=== PATIENT | female | born 1960 | race Caucasian/White ===

== ENCOUNTER 2017-07-25 10:18 | Emergency (ER) | payer OTHER ==
--- NOTE | 2017-07-25 10:39 | EDPHY ---
H & P Time Seen by Provider: 07/25/17 10:29 HPI/ROS: Chief complaint. Sweats, body aches HPI. Achy, sweaty, abdominal pain Patient is a 57-year-old female presents with 2 day history of achiness and sweatiness. No URI symptoms or cough or sore throat. No shortness of breath or chest discomfort. She has sharp left-sided abdominal pain. No vomiting or diarrhea. Unsure whether she has had fever. She has urinary frequency with decreased urination. No sick contacts or recent travel. No flu shot. No abdominal history or previous abdominal surgeries ROS Constitutional. Possible fever Eyes. no problems with vision ENT. no sore throat, no nasal drainage Cardiovascular. no chest pain Respiratory. no shortness of breath, no cough Abdominal. Left-sided abdominal pain . Urinary frequency MS. achy Skin. Sweaty Lymph. no swollen glands Neuro. Headache Past Medical/Surgical History: Healthy Social History: Single, daily smoker, no alcohol Smoking Status: Current every day smoker Physical Exam: General Appearance: Alert well-developed female moderate distress vital signs significant for heart rate 112 Eyes: Pupils equal and round no pallor or injection. ENT, Mouth: Mucous membranes are moist. Respiratory: There are no retractions, lungs are clear to auscultation. Cardiovascular: Regular rate and rhythm. Gastrointestinal: Abdomen is soft with left-sided abdominal tenderness. No tenderness at McBurney's point. No masses. Normal bowel sounds Neurological: Awake and alert, sensory and motor exams grossly normal. Skin: Warm and dry, no rashes. Musculoskeletal: Neck is supple nontender. Extremities symmetrical, full range of motion. Psychiatric: Patient is oriented X 3, there is no agitation. Constitutional: Initial Vital Signs Temperature (C) 36.5 C 07/25/17 10:24 Heart Rate 112 H 07/25/17 10:24 Respiratory Rate 20 07/25/17 10:24 Blood Pressure 123/92 H 07/25/17 10:24 O2 Sat (%) 97 07/25/17 10:24 O2 Delivery Mode Room Air Allergies/Adverse Reactions: No Known Allergies Allergy (Unverified 07/25/17 10:23) Home Medications: Medication Instructions Recorded Cephalexin [Keflex (*)] 500 mg PO TID #21 cap 07/25/17 Hydrocodone/APAP 5/325 [[place] 1 each PO Q4-6PRN PRN #10 tab 07/25/17 5/325 (*)] Ondansetron Odt [Zofran Odt] 4 mg PO Q4PRN PRN #4 tab 07/25/17 Medical Decision Making - Diagnostics Imaging Results: Imaging Impressions Chest X-Ray 07/25/17 11:00 Impression: Negative chest.. Abdomen CT 07/25/17 11:01 Impression: 1. Abnormal right kidney, suspicious of pyelonephritis. 2. Left adrenal mass, possible adenoma. I telephoned results to Dr. Amol Fabian at [address] abdomen reviewed by me and discussed with Dr. Farias shows likely pyelonephritis. Right kidney is swollen and edematous. No evidence for kidney stone or hydronephrosis. One-view chest x-ray interpreted by me is normal Procedures: IV normal saline. 1 L of saline. Toradol for discomfort and fentanyl for discomfort. Zofran for nausea ED Course/Re-evaluation: IV Rocephin. Urine is infected and certainly consistent with pyelonephritis. The patient and I talked about treatment plan including offer of admission. We discussed criteria for return as the patient does not wish to be treated as an inpatient. She expresses understanding and agreement 2:15 p.m. re-evaluation the patient is stable and feeling better. No vomiting. Differential Diagnosis: Left-sided abdominal pain but imaging studies show right pyelonephritis and by exam right pyelonephritis. Urinalysis is positive. I considered diverticulitis as well as kidney stone. - Data Points Laboratory Results: Laboratory Results 07/25/17 10:35 07/25/17 10:35 07/25/17 07/25/17 07/25/17 12:20 10:35 10:35 WBC 14.44 10^3/uL H 10^3/uL (3.80-9.50) RBC 5.63 10^6/uL H 10^6/uL (4.18-5.33) Hgb 18.9 g/dL H g/dL (12.6-16.3) Hct 52.0 % H % (38.0-47.0) MCV 92.4 fL fL (81.5-99.8) MCH 33.6 pg pg (27.9-34.1) MCHC 36.3 g/dL g/dL (32.4-36.7) RDW 11.9 % % (11.5-15.2) Plt Count 176 10^3/uL 10^3/uL (150-400) MPV 10.4 fL fL (8.7-11.7) Neut % (Auto) 79.2 % H % (39.3-74.2) Lymph % (Auto) 11.7 % L % (15.0-45.0) [place] % (Auto) 8.2 % % (4.5-13.0) Eos % (Auto) 0.1 % L % (0.6-7.6) Baso % (Auto) 0.4 % % (0.3-1.7) Nucleat RBC Rel Count 0.0 % % (0.0-0.2) Absolute Neuts (auto) 11.42 10^3/uL H 10^3/uL (1.70-6.50) Absolute Lymphs (auto) 1.69 10^3/uL 10^3/uL (1.00-3.00) Absolute Monos (auto) 1.19 10^3/uL H 10^3/uL (0.30-0.80) Absolute Eos (auto) 0.02 10^3/uL L 10^3/uL (0.03-0.40) Absolute Basos (auto) 0.06 10^3/uL 10^3/uL (0.02-0.10) Absolute Nucleated RBC 0.00 10^3/uL 10^3/uL (0-0.01) Immature Gran % 0.4 % % (0.0-1.1) Immature Gran # 0.06 10^3/uL 10^3/uL (0.00-0.10) Sodium 130 mEq/L L mEq/L (134-144) Potassium 3.0 mEq/L L mEq/L (3.5-5.2) Chloride 88 mEq/L L mEq/L (97-110) Carbon Dioxide 26 mEq/l mEq/l (22-31) Anion Gap 16 mEq/L mEq/L (8-16) BUN 16 mg/dL mg/dL (7-23) Creatinine 0.9 mg/dL mg/dL (0.6-1.0) Estimated GFR > 60 Glucose 143 mg/dL H mg/dL (70-100) Calcium 9.7 mg/dL mg/dL (8.5-10.4) Total Bilirubin 0.8 mg/dL mg/dL (0.1-1.4) Conjugated Bilirubin 0.5 mg/dL mg/dL (0.0-0.5) Unconjugated Bilirubin 0.3 mg/dL mg/dL (0.0-1.1) AST 31 IU/L IU/L (14-46) ALT 42 IU/L IU/L (9-52) Alkaline Phosphatase 118 IU/L IU/L (38-126) Troponin I < 0.012 ng/mL ng/mL (0.000-0.034) Total Protein 7.3 g/dL g/dL (6.3-8.2) Albumin 4.1 g/dL g/dL (3.5-5.0) Lipase 44 IU/L IU/L (23-300) Urine Color EMMANUEL Urine Appearance MODERATELY TURBID Urine pH 5.0 (5.0-7.5) Ur Specific [place] > 1.035 H (1.002-1.030) Urine Protein 2+ H (NEGATIVE) Urine Ketones TRACE H (NEGATIVE) Urine Blood 1+ H (NEGATIVE) Urine Nitrate POSITIVE H (NEGATIVE) Urine Bilirubin NEGATIVE (NEGATIVE) Urine Urobilinogen NEGATIVE EU EU (0.2-1.0) Ur Leukocyte Esterase 3+ H (NEGATIVE) Urine RBC 10-15 /hpf H /hpf (0-3) Urine WBC 50-182 /hpf H /hpf (0-3) Ur Epithelial Cells NONE SEEN /lpf /lpf (NONE-1+) Urine Bacteria 1+ /hpf H /hpf (NONE SEEN) Hyaline Casts 15-25 /lpf H /lpf (0-1) Urine Mucus TRACE /lpf /lpf (NONE-1+) Urine Glucose NEGATIVE (NEGATIVE) Microbiology Results: MICROBIOLOGY 07/25/17 10:35 Nasal, Sinus - Anaerobic Tube/Swab Respiratory Panel (PCR) - Final No Organism Detected Medications Given: Discontinued Medications Fentanyl (Sublimaze) 100 mcg IVP EDNOW ONE Stop: 07/25/17 11:01 Last Admin: 07/25/17 11:07 Dose: 100 mcg Sodium Chloride (Ns) 1,000 mls @ 0 mls/hr IV ONCE ONE; Wide Open PRN Reason: Protocol Stop: 07/25/17 11:01 Last Admin: 07/25/17 11:03 Dose: 1,000 mls Sodium Chloride (Ns) 1,000 mls @ 0 mls/hr IV ONCE ONE; Wide Open PRN Reason: Protocol Stop: 07/25/17 12:11 Last Admin: 07/25/17 12:23 Dose: 1,000 mls Ceftriaxone Sodium/Dextrose (Rocephin 1 Gm (Premix)) 50 mls @ 100 mls/hr IV EDNOW ONE PRN Reason: Protocol Stop: 07/25/17 14:13 Last Admin: 07/25/17 13:59 Dose: 50 mls Ketorolac Tromethamine (Toradol) 30 mg IVP EDNOW ONE Stop: 07/25/17 11:01 Last Admin: 07/25/17 11:07 Dose: 30 mg Ondansetron HCl (Zofran) 4 mg IVP EDNOW ONE Stop: 07/25/17 11:01 Last Admin: 07/25/17 11:10 Dose: 4 mg Departure - Departure Disposition: Home, Routine, Self-Care Clinical Impression: Pyelonephritis Condition: Good Instructions: Kidney Infection (ED) Additional Instructions: Drink plenty of fluids and stay hydrated. Cephalexin as antibiotic for kidney infection. Ibuprofen 600 mg every 6 hours for discomfort. Hydrocodone in addition as needed for discomfort. Zofran if needed for nausea. Return for worsening pain, fever, vomiting. Recheck in 2 days if not improved Referrals: NONE *PRIMARY CARE P,. [Primary Care Provider] - As per Instructions Zoila Howard MD [Medical Doctor] - 2-3 days, if not improved Stand Alone Forms: Work Excuse Prescriptions: Cephalexin [Keflex (*)] 500 mg PO TID #21 cap Hydrocodone/APAP 5/325 [[place] 5/325 (*)] 1 each PO Q4-6PRN PRN #10 tab PRN Reason: Pain, Moderate Ondansetron Odt [Zofran Odt] 4 mg PO Q4PRN PRN #4 tab PRN Reason: Nausea/Vomiting, Use 1st
[2017-07-25] MEDS ORDERED: ONDANSETRON 4 MG/2 ML VIAL IVP ONE (11:00)
[2017-07-25] MEDS ORDERED: KETOROLAC 30 MG/1 ML SDV IVP ONE (11:00)
[2017-07-25] MEDS ORDERED: NS 1,000 ML IV ONE ×2 (11:00→12:10)
[2017-07-25] MEDS ORDERED: fentaNYL 100 MCG/2 ML INJ IVP ONE (11:00)
[2017-07-25 11:09] LABS: % IMMATURE GRANULYOCYTES 0.4 % (0.0-1.1); ABSOLUTE IMMATURE GRANULOCYTES 0.06 10^3/uL (0.00-0.10); ADD DIFF? NO; ADD MORPH? NO; ADD SCAN? NO; ATYPICAL LYMPHOCYTE FLAG 0 (0-99); FRAGMENT RBC FLAG 0 (0-99); HEMOGLOBIN 18.9 g/dL (12.6-16.3); LEFT SHIFT FLG 10 (0-99); LIPEMIA HEMOLYSIS FLAG 90 (0-99); MEAN CELL HEMOGLOBIN 33.6 pg (27.9-34.1); MEAN CELL HEMOGLOBIN CONCENTR. 36.3 g/dL (32.4-36.7); MEAN CELL VOLUME 92.4 fL (81.5-99.8); MEAN PLATELET VOLUME 10.4 fL (8.7-11.7); PLATELET CLUMPS FLAG 0 (0-99); PLATELET COUNT 176 10^3/uL (150-400); RED BLOOD CELL COUNT 5.63 10^6/uL (4.18-5.33); RED CELL DISTRIBUTION WIDTH 11.9 % (11.5-15.2)
[2017-07-25 11:18] LABS: ALANINE AMINOTRANSFERASE 42 IU/L (9-52); ALBUMIN 4.1 g/dL (3.5-5.0); ALKALINE PHOSPHATASE 118 IU/L (38-126); ANION GAP 16 mEq/L (8-16); ASPARTATE AMINOTRANSFERASE 31 IU/L (14-46); BILIRUBIN,TOTAL 0.8 mg/dL (0.1-1.4); BILIRUBIN-CONJUGATED 0.5 mg/dL (0.0-0.5); BILIRUBIN-UNCONJUGATED 0.3 mg/dL (0.0-1.1); CALCIUM 9.7 mg/dL (8.5-10.4); CARBON DIOXIDE 26 mEq/l (22-31); CHLORIDE 88 mEq/L (97-110); CREATININE 0.9 mg/dL (0.6-1.0); GLOMERULAR FILTRATION RATE > 60; GLUCOSE 143 mg/dL (70-100); SODIUM 130 mEq/L (134-144); TOTAL PROTEIN 7.3 g/dL (6.3-8.2)
[2017-07-25] MEDS ORDERED: IOPAMIDOL (ISOVUE-300) 100 ML BTL ONE (11:28)
[2017-07-25 11:29] LABS: TROPONIN I < 0.012 ng/mL (0.000-0.034)
--- NOTE | 2017-07-25 11:59 | CPEKG ---
Heart Rate: 88 RR Interval: 682 P-R Interval: 200 QRSD Interval: 106 QT Interval: 408 QTC Interval: 494 P Ringling: 81 QRS Ringling: 84 T Wave Ringling: 83 EKG Severity - BORDERLINE ECG - EKG Impression: SINUS RHYTHM EKG Impression: BORDERLINE PROLONGED QT INTERVAL Electronically Signed By: Amol Fabian 25-Jul-2017 15:54:14
[2017-07-25 12:48] LABS: COLOR AMBER; LEUKOCYTE ESTERASE,URINE 3+ (NEGATIVE); NITRITE,URINE POSITIVE (NEGATIVE)
[2017-07-25 13:02] LABS: BACTERIA 1+ /hpf (NONE SEEN); HYALINE CASTS 15-25 /lpf (0-1); MUCUS TRACE /lpf (NONE-1+); WBC,URINE 50-182 /hpf (0-3)
[2017-07-25 13:19] VITALS: RESP 16; TEMP 98.8
[2017-07-25 14:28] VITALS: BP 115/70; PULSE 72; O2SAT 96
== END 2017-07-25 14:29 | disposition home or self-care (01) ==
DX: N12 Tubulo-interstitial nephritis, not specified as acute or chronic (principal); F17.200 Nicotine dependence, unspecified, uncomplicated; B96.20 Unspecified Escherichia coli [E. coli] as the cause of diseases classified elsewhere; E86.9 Volume depletion, unspecified
CPT/HCPCS: 71020; 74177; 93005; 96365; 96375; 99285; J0696; J1885; J2405; J3010; Q9967

== ENCOUNTER 2018-12-16 13:02 | Emergency (ER) | payer OTHER ==
[2018-12-16 13:07] VITALS: BP 119/91
[2018-12-16] MEDS ORDERED: OSELTAMIVIR PHOSPHATE 75 MG CAP PO ONE (13:18)
[2018-12-16] MEDS ORDERED: IBUPROFEN 600 MG TAB PO ONE (13:18)
--- NOTE | 2018-12-16 13:21 | EDPHY ---
H & P Stated Complaint: cough fever chills body aches Time Seen by Provider: 12/16/18 13:15 HPI/ROS: CHIEF COMPLAINT: Fever, body aches, sore throat dry cough HISTORY OF PRESENT ILLNESS: Patient is a 58-year-old female who comes to the emergency department complaining of flu-like symptoms for the last day and half. She has not taken her temperature at home. No GI symptoms. No difficulty urinating. No rash. No headache or neck stiffness. She states that the 1st thing she noticed was a general soreness and then developed the chills and body aches, sore throat dry cough. No difficulty breathing. No chest pain. No sick contacts. She is a smoker but is trying to quit. No history of asthma COPD. She has been staying hydrated. She did not get a flu vaccine this year. Severity: Moderate Modifying factors: None REVIEW OF SYSTEMS: Constitutional: See HPI EENTM: See HPI Respiratory: See HPI Cardiac: denies: chest pain, irregular heart rate, lightheadedness, palpitations Gastrointestinal/Abdominal: denies: abdominal pain, diarrhea, nausea, vomiting, blood streaked stools Genitourinary: denies: dysuria, frequency, hematuria, pain Musculoskeletal: denies: joint pain, muscle pain Skin: denies: lesions, rash, jaundice, bruising Neurological: denies: headache, numbness, paresthesia, tingling, dizziness, weakness Hematologic/Lymphatic: denies: blood clots, easy bleeding, easy bruising Immunologic/allergic: denies: HIV/AIDS, transplant 10 systems reviewed and negative except as noted EXAM: GENERAL: Uncomfortable but in no acute distress. HEAD: Atraumatic, normocephalic. EYES: Pupils equal round and reactive to light, extraocular movements intact, sclera anicteric, conjunctiva are normal. ENT: TMs normal, nares congested, oropharynx mild erythema without exudates. Moist mucous membranes. NECK: Normal range of motion, supple without lymphadenopathy or JVD. LUNGS: Breath sounds clear to auscultation bilaterally and equal. No wheezes rales or rhonchi. HEART: Regular rate and rhythm without murmurs, rubs or gallops. ABDOMEN: Soft, nontender, normoactive bowel sounds. No guarding, no rebound. No masses appreciated. BACK: No CVA tenderness, no spinal tenderness, step-offs or deformities EXTREMITIES: Normal range of motion, no pitting or edema. No clubbing or cyanosis. NEUROLOGICAL: Cranial nerves II through XII grossly intact. Normal speech, normal gait. 5/5 strength, normal movement in all extremities, normal sensation , normal reflexes PSYCH: Normal mood, normal affect. SKIN: Warm, dry, normal turgor, no visible rashes or lesions. Source: Patient Exam Limitations: No limitations - Personal History Current Tetanus Diphtheria and Acellular Pertussis (TDAP): Yes - Medical/Surgical History Hx Asthma: No Hx Chronic Respiratory Disease: No Hx Diabetes: No Hx Cardiac Disease: No Hx Renal Disease: No Hx Cirrhosis: No Hx Alcoholism: No Hx HIV/AIDS: No Hx Splenectomy or Spleen Trauma: No Other PMH: denies - Family History Significant Family History: No pertinent family hx - Social History Smoking Status: Current every day smoker Alcohol Use: None Constitutional: Initial Vital Signs Temperature (C) 37.3 C 12/16/18 13:06 Heart Rate 113 H 12/16/18 13:06 Respiratory Rate 20 12/16/18 13:06 Blood Pressure 119/91 H 12/16/18 13:06 O2 Sat (%) 91 L 12/16/18 13:06 O2 Delivery Mode Room Air Allergies/Adverse Reactions: No Known Allergies Allergy (Verified 12/16/18 13:05) Home Medications: Medication Instructions Recorded Oseltamivir Phosphate [Tamiflu 75 75 mg PO BID #10 cap 12/16/18 mg (*)] Promethazine HCl/Codeine 5 ml PO Q4-6PRN PRN #90 ml 12/16/18 [Prometh-Codein 6.25-10 mg/5 ml] Medical Decision Making ED Course/Re-evaluation: Patient is well-appearing. She has symptoms consistent with influenza. I offered testing but considering the ubiquity of the virus currently I feel it is likely unnecessary. She agrees. Will start on Tamiflu and antipyretics. Encouraged hydration and rest. She was slightly tachycardic at triage but this is resolved in the room. Differential Diagnosis: Partial list of the Differential diagnosis considered include but were not limited to; influenza, viral syndrome and although unlikely based on the history and physical exam, I also considered meningitis, sepsis, pneumonia. I discussed these differential diagnoses and the plan with the patient as well as the usual and expected course. The patient understands that the diagnosis is provisional and that in medicine we are not always correct and that further workup is often warranted. Usual and customary warnings were given. All of the patient's questions were answered. The patient was instructed to return to the emergency department should the symptoms at all worsen or return, otherwise to followup with the physician as we discussed. - Data Points Medications Given: Discontinued Medications Ibuprofen (Motrin) 600 mg PO EDNOW ONE Stop: 12/16/18 13:19 Last Admin: 12/16/18 13:38 Dose: 600 mg Oseltamivir Phosphate (Tamiflu) 75 mg PO EDNOW ONE Stop: 12/16/18 13:19 Last Admin: 12/16/18 13:38 Dose: 75 mg Departure - Departure Disposition: Home, Routine, Self-Care Clinical Impression: Influenza Condition: Fair Instructions: Promethazine (By mouth), Oseltamivir (By mouth), Influenza (ED) Referrals: [facility],. [Clinic] - 3-4 days, if not improved Prescriptions: Oseltamivir Phosphate [Tamiflu 75 mg (*)] 75 mg PO BID #10 cap Promethazine HCl/Codeine [Prometh-Codein 6.25-10 mg/5 ml] 5 ml PO Q4-6PRN PRN # 90 ml PRN Reason: Cough, Moderate
== END 2018-12-16 14:00 | disposition home or self-care (01) ==
DX: J11.1 Influenza due to unidentified influenza virus with other respiratory manifestations (principal)